=== PATIENT | female | born 1975 | race Caucasian/White ===

== ENCOUNTER 2016-04-23 21:10 | Emergency (ER) | payer SELFPAY ==
[~2016-04-23] VITALS: Ht 172.7 cm; Wt 74.8 kg
[2016-04-23 21:24] VITALS: BP 106/59
[2016-04-23 21:49] LABS: OBC FLU VALID
[2016-04-23] MEDS ORDERED: ACETAMINOPHEN 500 MG TABLET PO ONE (22:00)
[2016-04-23] MEDS ORDERED: ONDANSETRON ODT 4 MG TAB.RAPDIS PO ONE (22:00)
[2016-04-23] MEDS ORDERED: ONDA4TAB10 SL (22:12)
--- NOTE | 2016-04-23 22:12 | PHYS DOC ---
Past Medical History Past Medical History: Anemia, Other Additional Past Medical Histor: RAYNAUDS, LYMPHEDEMA, NERVE DAMAGE Past Surgical History: Tonsillectomy Alcohol Use: None Drug Use: None Adult General Chief Complaint Chief Complaint: FLU SYMPTOM HPI HPI Patient is a 41 year old female presents emergency Department stating around 2: 00 this afternoon she started having generalized body aches and discomfort with back pain. She does also state that she's had some nausea and vomiting. Denies any diarrhea denies any urinary frequency urgency or pain with urination. She states that she is also having pain in her right forearm to upper arm. Patient states she has not taken anything for the pain and discomfort. Significant other at bedside states approximately one hour prior to arrival she had a temperature of 102. She has not taken anything for fever chills or generalized body aches and discomfort. Review of Systems Review of Systems Constitutional: Denies fever or chills [] Eyes: Denies change in visual acuity, redness, or eye pain [] HENT: Denies nasal congestion or sore throat [] Respiratory: Denies cough or shortness of breath [] Cardiovascular: No additional information not addressed in HPI [] GI: Denies abdominal pain, bloody stools or diarrhea. C/o nausea and vomiting : Denies dysuria or hematuria [] Musculoskeletal: Denies back pain or joint pain [] Integument: Denies rash or skin lesions [] Neurologic: Denies headache, focal weakness or sensory changes [] Current Medications Current Medications Current Medications Medications (Trade) Dose Ordered Sig/[facility] Start Time Stop Time Status Last Admin Dose Admin Acetaminophen (Tylenol) 1,000 mg 1X ONCE 04/23/16 22:00 04/23/16 22:01 DC 04/23/16 21:46 1,000 MG Ondansetron HCl (Zofran Odt) 4 mg 1X ONCE 04/23/16 22:00 04/23/16 22:01 DC 04/23/16 21:46 4 MG Allergies Allergies Allergies Coded Allergies Type Severity Reaction Last Updated Verified No Known Drug Allergies 04/23/16 No Physical Exam Physical Exam Constitutional: Well developed, well nourished, no acute distress, non-toxic appearance. [] HENT: Normocephalic, atraumatic, bilateral external ears normal, oropharynx moist, no oral exudates, nose normal. Bilateral tympanic membranes appear to be normal. Throat with no erythematous exudates. Eyes: PERRLA, EOMI, conjunctiva normal, no discharge. [] Neck: Normal range of motion, no tenderness, supple, no stridor. [] Cardiovascular:Heart rate regular rhythm, no murmur [] Lungs & Thorax: Bilateral breath sounds clear to auscultation [] Abdomen: Bowel sounds hypoactive, soft, no tenderness, no masses, no pulsatile masses. [] Skin: Warm, dry, no erythema, no rash. [] Back: No tenderness Extremities: No tenderness, no cyanosis, no clubbing, ROM intact, no edema. [] Neurologic: Alert and oriented X 3, normal motor function, normal sensory function, no focal deficits noted. [] Psychologic: Affect normal, judgement normal, mood normal. [] Current Patient Data Vital Signs Vital Signs Date Time Temp Pulse Resp B/P Pulse Ox O2 Delivery O2 Flow Rate FiO2 04/23/16 21:24 98.3 59 18 59 Room Air 98.3 Lab Values Laboratory Tests Test 04/23/16 21:23 Influenza Type A Antigen Negative (NEGATIVE) Influenza Type B Antigen Negative (NEGATIVE) EKG EKG [] Radiology/Procedures Radiology/Procedures [] Course & Med Decision Making Course & Med Decision Making Pertinent Labs and Imaging studies reviewed. (See chart for details) Influenza swabs were negative. Patient was provided with Zofran here in the emergency department as she states she vomited 5 times at home with no blood or in the emesis. Patient was able to tolerate by mouth fluids here in the emergency department she is provided with Tylenol. Patient will be discharged home in stable condition since symptoms to return back to emergency department as been provided. Patient agrees with discharge instructions treatment regimens and follow-up recommendations. [] Dragon Disclaimer Dragon Disclaimer This electronic medical record was generated, in whole or in part, using a voice recognition dictation system. Departure Departure Impression: Primary Impression: Vomiting alone Disposition: 01 HOME, SELF-CARE Condition: STABLE Referrals: NO PCP (PCP) Patient Instructions: Nausea and Vomiting, [id number] Additional Instructions: Home to rest Clear liquid diet for the next 24 hours Medication as prescribed Tylenol or Ibuprofen for fever, chills, generalized body aches Followup with primary care provider in 5-7 days Return to emergency department as needed for signs and symptoms that become worse. Scripts Ondansetron (Zofran Odt)4 Mg Tab.rapdis1 Tab SL Q8HRS #10 TAB Prov:ISMAEL AYALA NP 04/23/16 ISMAEL AYALA NP Apr 23, 2016 22:12
== END 2016-04-23 22:20 | disposition home or self-care (01) ==
LOC: ER 21:10
DX: R11.2 Nausea with vomiting, unspecified (principal); M54.9 Dorsalgia, unspecified; R52 Pain, unspecified; M79.631 Pain in right forearm; I73.00 Raynaud's syndrome without gangrene
CPT/HCPCS: 87804; 99284; Q0162

== ENCOUNTER → 2017-06-22 | Outpatient (CLI) | payer OTHER | END | disposition home or self-care (01) | LOC: KCIC 12:22 | DX: M43.16 Spondylolisthesis, lumbar region (principal); M51.46 Schmorl's nodes, lumbar region | CPT/HCPCS: 72050; 72110; 73502 ==

== ENCOUNTER → 2017-07-12 | Outpatient (CLI) | payer OTHER | END | disposition home or self-care (01) | LOC: RT 08:20 | DX: G47.30 Sleep apnea, unspecified (principal) | CPT/HCPCS: G0399 ==